=== PATIENT | male | born 1930 | race Caucasian/White ===

== ENCOUNTER 2016-12-27 08:30 | Outpatient (RCR) | payer OTHER ==
[~2016-12-27 08:30] MED LIST: AVODART0.5 MG PO; BENAZEPRIL HCL40 MG PO; CRESTOR10 M1 PO; FISH OIL500 MG PO
== END 2017-01-20 | disposition home or self-care (01) ==
LOC: PTY 08:30
PROVIDERS: ATTEND Internal Medicine
DX: M62.830 Muscle spasm of back (principal)

== ENCOUNTER 2017-01-23 10:15 | Outpatient (RCR) | payer OTHER | END 2017-02-19 | disposition home or self-care (01) | LOC: PTY 10:15 | PROVIDERS: ATTEND Internal Medicine | DX: M62.830 Muscle spasm of back (principal) ==

== ENCOUNTER 2017-02-20 09:00 | Outpatient (RCR) | payer OTHER | END 2017-03-22 | disposition home or self-care (01) | LOC: PTY 09:00 | PROVIDERS: ATTEND Internal Medicine | DX: M62.830 Muscle spasm of back (principal); M79.606 Pain in leg, unspecified; M25.559 Pain in unspecified hip; E11.9 Type 2 diabetes mellitus without complications; M54.5 Low back pain ==